=== PATIENT | female | born 1985 | race Caucasian/White ===

== ENCOUNTER 2017-05-31 09:39 | Inpatient (IN) | payer BC ==
[2017-05-31] MEDS ORDERED: LR 500 ML IV ONE ×2 (10:07→10:23)
[2017-05-31] MEDS ORDERED: ceFAZolin 2 GM/DEXTROSE 100 ML IV ONE (10:07)
[2017-05-31] MEDS ORDERED: LIDOCAINE 1% 300 MG/30 ML SDV ONE (10:15)
[2017-05-31] MEDS ORDERED: OXYTOCIN 10 UNIT/ML VIAL ONE (10:16)
[2017-05-31] MEDS ORDERED: AMMONIA AROMATIC 1 EACH AMP IH ONE (10:16)
[2017-05-31] MEDS ORDERED: TERBUTALINE SULFATE 1 MG/ML VIAL ONE (10:16)
[2017-05-31] MEDS ORDERED: MISOPROSTOL 200 MCG TAB ONE (10:16)
[2017-05-31] MEDS ORDERED: LR 1,000 ML IV SCH ×2 (10:30)
[2017-05-31 10:40] LABS: % IMMATURE GRANULYOCYTES 0.8 % (0.0-1.1); ABSOLUTE IMMATURE GRANULOCYTES 0.11 10^3/uL (0.00-0.10); ADD DIFF? NO; ADD MORPH? NO; ADD SCAN? NO; ATYPICAL LYMPHOCYTE FLAG 0 (0-99); FRAGMENT RBC FLAG 0 (0-99); HEMATOCRIT 39.6 % (38.0-47.0); HEMOGLOBIN 13.6 g/dL (12.6-16.3); LEFT SHIFT FLG 0 (0-99); LIPEMIA HEMOLYSIS FLAG 90 (0-99); MEAN CELL HEMOGLOBIN 32.8 pg (27.9-34.1); MEAN CELL HEMOGLOBIN CONCENTR. 34.3 g/dL (32.4-36.7); MEAN CELL VOLUME 95.4 fL (81.5-99.8); MEAN PLATELET VOLUME 11.1 fL (8.7-11.7); PLATELET CLUMPS FLAG 10 (0-99); PLATELET COUNT 168 10^3/uL (150-400); RED BLOOD CELL COUNT 4.15 10^6/uL (4.18-5.33); RED CELL DISTRIBUTION WIDTH 12.8 % (11.5-15.2)
[2017-05-31] MEDS ORDERED: CITRIC ACID/SODIUM CITRATE 30 ML UDCUP PO ONE (10:55)
--- NOTE | 2017-05-31 10:58 | PDANEPAE ---
ANE History of Present Illness breech presentation ANE Past Medical History - Cardiovascular History Hx Hypertension: No Hx Arrhythmias: No Hx Chest Pain: No Hx Coronary Artery / Peripheral Vascular Disease: No Hx CHF / Valvular Disease: No Hx Palpitations: No - Pulmonary History Hx COPD: No Hx Asthma/Reactive Airway Disease: No Hx Recent Upper Respiratory Infection: No Hx Oxygen in Use at Home: No Hx Sleep Apnea: No - Endocrine History Hx Diabetes: No Hypothyroid: No Hyperthyroid: No Obesity: no - Surgical History Prior Surgeries: detached retina/scleral buckling ANE Review of Systems Review of Systems: - Exercise capacity METS (RN): 4 METS ANE Patient History - Allergies Allergies/Adverse Reactions: No Known Allergies Allergy (Unverified 05/31/17 10:05) - Home Medications Home Medications: 05/31/17 [Last Taken 05/30/17 19:00] - Anes Hx Anes Hx: no prior problems - Smoking Hx Smoking Status: Never smoked ANE Labs/Vital Signs - Labs Result Diagrams: 05/31/17 10:10 - Vital Signs Height: 165.1 cm Weight: 78.471 kg ANE Physical Exam - Airway Neck exam: FROM Mallampati Score: Class 2 Mouth exam: normal dental/mouth exam - Pulmonary Pulmonary: no respiratory distress, no rales or rhonchi, clear to auscultation - Cardiovascular Cardiovascular: regular rate and rhythym, no murmur, rub, or gallop - ASA Status ASA Status: II, E ANE Anesthesia Plan Anesthesia Plan: spinal Total IV Anesthesia: No
[2017-05-31] MEDS ORDERED: fentaNYL 100 MCG/2 ML INJ ONE (11:06)
--- NOTE | 2017-05-31 11:21 | GHP ---
[f rep st] HISTORY AND PHYSICAL DATE OF ADMISSION: 05/31/2017 ADMITTING DIAGNOSIS: 1. Intrauterine at 40 weeks. 2. Malpresentation, breech. HISTORY OF PRESENT ILLNESS: Patient is a 32-year-old, 1, para 0, at 40 weeks with an estimated due date 05/31/2017 by LMP 08/24/2016 and confirmed by first-trimester ultrasound. The patient presented for routine visit today and on ultrasound was found to be breech, and she was sent down to Labor and Delivery. The patient denies any leakage of fluid or vaginal bleeding. States there is good movement. Does admit to contractions every 8 minutes , getting more painful and was found to be 2 cm and 100 % effaced in the office on exam. The patient has good care at [facility] and presented in her 1st trimester at 8 weeks. She was diagnosed in her 1st trimester by ultrasound with a placenta previa. This did resolve in second- trimester at 20 weeks. The patient does have a history of scleral buckle, a detached retina with 3 surgeries. She is taking baby aspirin prophylactically for preeclampsia because she has a twin sister, who had elevated liver enzymes and HELLP in her 3rd trimester of her . The patient did receive a Tdap during . She did develop anemia of , and is tolerating iron. GBS culture is negative. PAST OBSTETRIC HISTORY: Patient is primigravida. GYNECOLOGIC HISTORY: Age of menarche is 12. Cycles are every 28 days for 5 days. LMP 08/24/2016. She had a positive urine test mid-September. Patient has a history of abnormal Pap smears and had cryotherapy of cervix in 2005 with negative Pap smears since. 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 Denies any genital lesions. She denies exposure to any other STDs. She has a history of OCPs, NuvaRing use in the past and had Mirena in place for 5 years with removal in April 2016. PAST MEDICAL HISTORY: Unremarkable. PAST SURGICAL HISTORY: She had a detached retina and needed 3 surgeries in 2014 in right eye, and she did have anesthetic complications, requiring increased anesthesia. MEDICATIONS: Include [id number] vitamin and iron. ALLERGIES: No known drug allergies. SOCIAL HISTORY: She is , lives with her . 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 Denies alcohol, tobacco or illicit drug use. FAMILY HISTORY: Maternal grandmother with stomach cancer, great grandmother had melanoma and great aunt with colon cancer. REVIEW OF SYSTEMS: A 10-point review of systems is negative. Pertinent positives noted in HPI. LABS: Blood type A positive, antibody negative. RPR nonreactive. Rubella immune. Hepatitis B surface antigen negative. HIV negative. Trio screen negative. Pap test normal in October 2016, as well as gonorrhea and chlamydia cultures. AFP negative. Verifi negative. H and H 12.6 and 36.5. 1- hour Glucola 134. GBS culture is negative. PHYSICAL EXAMINATION: VITAL SIGNS: On admission, vital signs are stable. GENERAL: Well-nourished, well-developed female. Alert and oriented x3. No apparent distress. CARDIOVASCULAR: Regular rate and rhythm. LUNGS: Clear to auscultation. ABDOMEN: Gravid, soft, nontender, nondistended. EXTREMITIES: Normal to inspection, without calf tenderness or edema. PELVIC: Vaginal exam is deferred. On the monitor, there is a Category 1 strip, with a heart baseline 140 bpm , positive accelerations, no decelerations. Moderate variability. On toco, there are contractions every 8-10 minutes. ASSESSMENT: The patient is a 32-year-old, 1, para 0, at 40 weeks with malpresentation, breech. PLAN: 1. Admit to Labor and Delivery. 2. Proceed with a primary C section. 3. Surgical consents were obtained. Discussed risks, benefits and alternatives with the patient; including, but not limited to, bleeding, infection, damage to surrounding organs. The patient understands all risks at this time and wants to proceed with surgery. 4. Antibiotics global expansion sales director to OR. 5. SCDs for DVT prophylaxis. /[id number]/MODL MTDD
[2017-05-31] MEDS ORDERED: OXYTOCIN 100 UNITS/10 ML VIAL ONE (12:18)
[2017-05-31] MEDS ORDERED: ONDANSETRON 4 MG/2 ML VIAL IVP PRN (13:09)
[2017-05-31] MEDS ORDERED: NALOXONE HCL 0.4 MG/ML INJ IVP PRN (13:09)
[2017-05-31] MEDS ORDERED: METOCLOPRAMIDE 10 MG/2 ML VIAL IVP PRN (13:09)
--- NOTE | 2017-05-31 13:12 | POSTANESTH ---
Post Anesthetic Evaluation Cardiovascular Status: Normal, Stable Respiratory Status: Normal, Stable Level of Consciousness/Mental Status: Can Participate in Eval Pain Control: Adequate, Prn Tx Ordered Nausea/Vomiting Control: Adequate, Prn Tx Ordered Complications Possibly Related to Anesthesia: None Noted
[2017-05-31] MEDS ORDERED: PROMETHAZINE HCL 25 MG/ML INJ IVP PRN (13:50)
[2017-05-31] MEDS ORDERED: DOCUSATE SODIUM 100 MG CAP PO PRN (13:50)
[2017-05-31] MEDS ORDERED: BISACODYL 10 MG SUPP PR PRN (13:50)
[2017-05-31] MEDS ORDERED: POLYETHYLENE GLYCOL 3350 17 GM PKT PO PRN (13:50)
[2017-05-31] MEDS ORDERED: MAGNESIUM HYDROXIDE 30 ML UDCUP PO PRN (13:50)
[2017-05-31] MEDS ORDERED: SIMETHICONE 80 MG TAB CHEW PO PRN (13:50)
[2017-05-31] MEDS ORDERED: LACTULOSE 20 GM/30 ML UDCUP PO PRN (13:50)
--- NOTE | 2017-05-31 13:57 | OBDEL ---
Info Type: Primary Presentation at Delivery: Breech (double footling) L&D Analgesia/Anesthesia Type: Spinal GBS+: No Intrapartum Medications: Discontinued Medications Generic Name Dose Route Start Last Admin Trade Name Maria Elena PRN Reason Stop Dose Admin Citric Acid/Sodium Citrate 30 ml 05/31/17 10:55 05/31/17 11:40 Bicitra PO 05/31/17 10:56 30 ml ONCE ONE Administration Cefazolin Sodium/Dextrose 100 mls @ 200 mls/hr 05/31/17 10:07 05/31/17 11:42 Ancef 2 Gm (Premix) IV 05/31/17 10:36 100 mls ONCALL ONE Administration Protocol - Infant Care Provider Fashion Consultant Sales/MAINTENANCE TECHNICIAN: Marguerite Aranda - [facility] Course Intrapartum: Pt noted to be breech in office today at routine visit by bedside u/s. 05/31/17 13:55 Indications for Delivery: Elective (Malpresentation-breech) Vaginal Delivery - Labor and Delivery Onset of Contractions Date: 05/30/17 Onset of Contractions Time: 23:00 Rupture of Membranes Date: 05/31/17 Rupture of Membranes Time: 12:16 Placenta Delivery Date: 05/31/17 Placenta Delivery Time: 12:18 Total Hours of Labor: 13 Operative Report - Delivery Pre-op Diagnoses: IUP @ 40 weeks with malpresentation-breech Post-op Diagnoses: IUP @ 40 weeks with malpresentation-breech. Double footling breech. Nuchal cord History of Prior Section: No Number of Prior Sections: 0 Nulliparous Prior to Delivery: Yes Indications for Current Section: Breech (double footling) Procedure: Low Transverse Surgeon: Sheron Montes Teller Vault: Jose Carlos Brady Anesthesiologist: Joshua Ruth Complications: None Findings: A viable female in double footling presentation with 8 and 9 Apgars. Nuchal cord x 1 -slipped. Delayed cord clamping done. Cord blood sent. Placenta delivered spontaneously intact with a 3-vc. Grossly normal appearing uterus, tubes and ovaries. IV Fluid (ml): 1,500 EBL: 800cc Data Wan Delivery Date: 05/31/17 Delivery Time: 12:17 SANTO: 05/31/17 Gestational Age: 40 week(s) and 0 day(s) Sex of : Female Score (1 Min): 8 Score (5 Min): 9 ("Lizette") ICD10 Worksheet Patient Problems: Problems Problem Status Onset Breech presentation, double footling Acute Status post primary low transverse section Acute - ICD10 Problem Qualifiers (1) Breech presentation, double footling (2) Status post primary low transverse section
[2017-05-31] MEDS: KETOROLAC 30 MG/1 ML SDV IVP PRN ×2 (14:28→20:41)
--- NOTE | 2017-05-31 16:48 | GOP ---
[f rep st] OPERATIVE REPORT DATE OF OPERATION: 05/31/2017 SURGEON: Sheron Montes DO FIRE WATCHER: Jose Carlos Brady MD ANESTHESIA: Spinal. ANESTHESIOLOGIST: Michael Ruth DO PREOPERATIVE DIAGNOSIS: 1. Intrauterine at 40 weeks. 2. Malpresentation, breech. POSTOPERATIVE DIAGNOSIS: 1. Intrauterine at 40 weeks. 2. Malpresentation, breech. 3. Double footling. 4. Nuchal cord. PROCEDURE PERFORMED: Primary low transverse section. FINDINGS: Viable female with 8 and 9 's in double footling breech presentation. Cord cla mping was delayed. Cord blood sent. Placenta delivered intact with 3-vessel cord and grossly normal-a ppearing uterus, tubes, and ovaries bilaterally. SPECIMENS: None. ESTIMATED BLOOD LOSS: 800 cc. INDICATIONS: Patient is a 32-year-old 1 para 0 at 40 weeks, who [facility] and was found to be breech on ultrasound. She was sent down to Labor and Delivery. Pat ient denies any leakage of fluid or vaginal bleeding. States there is good movement. Does admit to contractions every 8 minutes since last night, getting more painful. In the office, was examined and found to be 2 cm and 100% effaced. We discussed, with her being in early labor and baby being blanca ech, to proceed with a . We did discuss risks, benefits, and alternatives of the procedure i ncluding, but not limited to, bleeding, infection, and damage to surrounding organs. Patient understa nds all risks at this time and does want to proceed with the surgery. DESCRIPTION OF PROCEDURE: Patient was taken to the operating room where spinal anesthesia was admini stered without difficulty. The patient was prepped and draped in the usual sterile fashion and placed in dorsal supine position with a leftward tilt. There was adequate anesthesia noted. A Pfannenstiel skin incision was then made with the scalpel and carried through the underlying layer of fascia using the Bovie. Fascia was then incised in the midline and extended laterally using the Farzaneh mendosa scissors. Tari clamps were then used to elevate the superior aspect of the fascial incision, and underlying rectus muscles were dissected off using the Eduardo scissors, as well as bluntly. Attention was then turned to the inferior aspect of the fascial incision, which in a similar fashion was graspe d with Tari clamps and elevated, and underlying rectus muscles dissected off bluntly. Rectus muscle s then dissected in the midline. Peritoneum was identified, entered bluntly. The incision was then ex tended superiorly and inferiorly with good visualization of the bladder. Bladder blade was then inser dave. Vesicouterine peritoneum was identified, entered sharply with Metzenbaum scissors. Incision was then extended laterally, and a bladder flap was created digitally. Uterine incision was then made in a low transverse fashion with scalpel and extended anteriorly and posteriorly with manual traction. R upture of membranes occurred, and there was noted to be meconium and a double footling presentation. Infant was delivered without difficulty. Cord clamping was delayed for 60 seconds. It was then clampe d x2 and cut. handed off to awaiting nursery nurse. A viable female with 8 and 9 ' s. Cord blood was obtained. Placenta was then delivered intact with 3-vessel cord. Uterus was then e xteriorized and cleared of all clots, debris, and any remaining placental tissue. The uterine incisio n was then repaired in 2 layers using 0 Vicryl stitch. Hemostasis was visualized. The uterus was then placed back inside the abdomen. All gutters were cleared of any blood and blood clots. The incision was reexamined and noted to be hemostatic. Rectus muscles were then reapproximated midline using 3-0 Vicryl. The fascia was then closed with 0 Vicryl sutures. Hemostasis was noted. Skin was then closed with 4-0 Vicryl on a Willy needle. Sponge, lap, and instrument counts correct x2. Patient tolerated t he procedure well. No complications. The patient was stable at the completion of procedure and was transferred to the recovery room in sta ble condition. FLUIDS: 1500 cc LR. URINE OUTPUT: 300 cc of clear urine at the end the procedure. /[id number]/MODL
[2017-05-31] MEDS: SENNOSIDES/DOCUSATE SODIUM TAB PO SCH (20:41)
[2017-06-01] MEDS: KETOROLAC 30 MG/1 ML SDV IVP PRN ×2 (03:18→09:03)
[2017-06-01] MEDS: SENNOSIDES/DOCUSATE SODIUM TAB PO SCH ×2 (09:03→20:21)
--- NOTE | 2017-06-01 11:06 | OBPP ---
Progress Note Assessment/Plan: Assessment: 1) s/p PCS secondary to malpresentation-double footling breech POD # 1 - pt is stable 2) Anemia - pt is asymptomatic Plan: Continue routine pp care Encourage ambulation Pt may shower after dressing is removed at noon Cont to monitor urine output Will start iron BID Plan for d/c home in 24-48 hrs 06/01/17 11:02 Subjective/ Course: Pt seen and examined. Doing well, up ambulating in the halls. No complaints. Pain is well controlled with Toradol. Pt is OOB, sarah regular diet, woo just removed, passing flatus. Denies any f/c/n/v/CP or SOB. Denies any dizziness when up OOB. Minimal lochia. BF well so far. 06/01/17 11:04 Objective: 06/01/17 03:25 Patient ABO/Rh A POSITIVE 05/31/17 10:10 Temp Pulse Resp BP Pulse Ox 36.7 C 69 16 104/59 L 99 06/01/17 07:45 06/01/17 07:45 06/01/17 07:45 06/01/17 07:45 06/01/17 07:45 Uterine Position/Fundal Height: Umbilicus -2 Uterine Tone: Firm Physical Exam - Physical Exam Respiratory: lungs clear, normal breath sounds Cardiac/Chest: regular rate, rhythm Abdomen: normal bowel sounds, non-tender, soft, flatus (+), incision (C/D/I with dressing), dressing (C/D/I) Extremities: non-tender, normal inspection Skin: normal color, warm/dry Neuro/Psych: alert, normal mood/affect, oriented x 3
--- NOTE | 2017-06-01 11:22 | SOAPPROG ---
SOAP Progress Note Assessment/Plan: Assessment:POD #1 s/p C/S performed under SAB. Intrathecal morphine administered for extended post op pain control. Pt doing very well. Plan:continue current medical mgmt 06/01/17 11:20 Objective: Vital Signs Temp Pulse Resp BP Pulse Ox 36.7 C 69 16 104/59 L 99 06/01/17 07:45 06/01/17 07:45 06/01/17 07:45 06/01/17 07:45 06/01/17 07:45 Laboratory Results 06/01/17 03:25 05/31/17 06/01/17 06/02/17 05:59 05:59 05:59 Intake Total 3250 Output Total 1800 600 Balance 1450 -600 Physical Exam - Physical Exam General Appearance: WD/WN, alert, no apparent distress Extremities: normal range of motion Neuro/Psych: no motor/sensory deficits, alert, normal mood/affect, oriented x 3 ICD10 Worksheet Patient Problems: Problems Problem Status Onset Breech presentation, double footling Acute Status post primary low transverse section Acute
[2017-06-01] MEDS: IRON POLYSAC/IRON HEME 28 MG TAB PO SCH ×2 (12:35→20:21)
[2017-06-01] MEDS: HYDROCODONE/APAP 5/325 TAB PO PRN ×2 (16:34→20:20)
[2017-06-01] MEDS: IBUPROFEN 600 MG TAB PO PRN ×2 (16:35→23:35)
[2017-06-02] MEDS: HYDROCODONE/APAP 5/325 TAB PO PRN ×5 (00:09→20:56)
[2017-06-02] MEDS: IBUPROFEN 600 MG TAB PO PRN ×3 (06:15→21:53)
[2017-06-02] MEDS: SENNOSIDES/DOCUSATE SODIUM TAB PO SCH ×2 (08:41→20:57)
[2017-06-02] MEDS: IRON POLYSAC/IRON HEME 28 MG TAB PO SCH ×2 (08:41→20:57)
--- NOTE | 2017-06-02 13:21 | OBPP ---
Progress Note Assessment/Plan: Assessment: 32 yo WF POD#1 s/p 1CD for breech @ 40 weeks with suspected subcutaneous hematoma (underlying Pfannenstiel incision). Plan: 1. Postop: Routine post-operative care, advance diet and activity as tolerated, may showe today 2. Suspected Incisional Hematoma: Monitor incision site closely, repeat H&H today, kept tightly bandaged with ABD binder and ice packs. 06/02/17 13:17 Subjective/ Course: Pt seen and examined. Doing well, up ambulating in the halls. No complaints. Pain is well controlled with Toradol. Pt is OOB, sarah regular diet, woo just removed, passing flatus. Denies any f/c/n/v/CP or SOB. Denies any dizziness when up OOB. Minimal lochia. BF well so far. 06/01/17 11:04 06/02/17 13:21 Patient is ambulating, tolerating pain with PO meds, voiding on her own, denies spontaneous flatus, reports moderate lochia, and is infant without difficulty. She denies excessive incisional pain, but is aware of bruising and swelling at incision site. Objective: 06/01/17 03:25 Patient ABO/Rh A POSITIVE 05/31/17 10:10 Temp Pulse Resp BP Pulse Ox 36.3 C 80 18 116/65 96 06/02/17 08:00 06/02/17 08:00 06/02/17 08:00 06/02/17 08:00 06/02/17 08:00 Gen: AAO x 3 HENT: atraumatic, normocephalic Heart: RRR, no m/r/g Lungs: CTAB, no wheezes or rhonchi Abdomen: soft, appropriately tender, bowel sounds present, incision is clean, dry and intact with noted underlying (stable-appearing) hematoma Extremities: no excessive edema in BLE Hct (06/02/17): Pending Uterine Position/Fundal Height: Umbilicus -2 Uterine Tone: Firm
[2017-06-02 16:13] LABS: HEMATOCRIT 24.4 % (38.0-47.0); HEMOGLOBIN 8.2 g/dL (12.6-16.3)
[2017-06-02 20:11] VITALS: RESP 16; O2SAT 97
[2017-06-03] MEDS: IBUPROFEN 600 MG TAB PO PRN ×2 (03:42→09:15)
--- NOTE | 2017-06-03 08:43 | OBPP ---
Progress Note Assessment/Plan: Assessment: 1) s/p PCS secondary to malpresentation-double footling breech POD # 3 - pt is stable 2) Anemia - pt is asymptomatic 3) Wound hematoma - stable Plan: Continue routine pp care Pt wants to go home today Instructions reviewed with pt Rx given for [facility] and Motrin Cont PNV and iron, colace Pelvic rest RTC in 3-5 days for incision check 06/03/17 08:40 Subjective/ Course: Pt seen and examined. Doing well, up ambulating in the halls. No complaints. Pain is well controlled with Toradol. Pt is OOB, sarah regular diet, woo just removed, passing flatus. Denies any f/c/n/v/CP or SOB. Denies any dizziness when up OOB. Minimal lochia. BF well so far. 06/01/17 11:04 06/02/17 13:21 Patient is ambulating, tolerating pain with PO meds, voiding on her own, denies spontaneous flatus, reports moderate lochia, and is infant without difficulty. She denies excessive incisional pain, but is aware of bruising and swelling at incision site. 06/03/17 08:42 Pt seen and examined. Doing well with no complaints. Pain is well controlled. Pt is OOB, sarah regular diet, voiding and passing flatus. NO BM yet. Mod lochia. Denies any f/c/n/v/CP or SOB. Some incisional tenderness, but no drainage. BF without difficulty. She wants to go home today. Objective: 06/02/17 16:00 Patient ABO/Rh A POSITIVE 05/31/17 10:10 Temp Pulse Resp BP Pulse Ox 36.5 C 85 16 116/65 97 06/02/17 20:10 06/02/17 20:10 06/02/17 20:10 06/02/17 08:00 06/02/17 20:10 Uterine Position/Fundal Height: Umbilicus -2 Uterine Tone: Firm Physical Exam - Physical Exam Respiratory: lungs clear, normal breath sounds Cardiac/Chest: regular rate, rhythm Abdomen: normal bowel sounds, non-tender, soft, flatus (+), incision (C/D/I; + ecchymosis; +induration noted superiorly; no erythema; +edema; c/w hematoma) Extremities: non-tender, normal inspection Skin: normal color, warm/dry Neuro/Psych: alert, normal mood/affect, oriented x 3
--- NOTE | 2017-06-03 08:47 | OBGCSDC ---
General Delivery Information - General Info : 1 Para: 1 Abortions: 0 Type: Primary L&D Analgesia/Anesthesia Type: Spinal Admission Date: 05/31/17 Labs: Patient ABO/Rh A POSITIVE 05/31/17 10:10 Hct 24.4 % (38.0-47.0) L 06/02/17 16:00 - Hospital Course Antepartum: 06/03/17 08:45 Malpresentation - breech on u/s at routine visit at 40 weeks Intrapartum: Pt noted to be breech in office today at routine visit by bedside u/s. 05/31/17 13:55 : Pt seen and examined. Doing well, up ambulating in the halls. No complaints. Pain is well controlled with Toradol. Pt is OOB, sarah regular diet, woo just removed, passing flatus. Denies any f/c/n/v/CP or SOB. Denies any dizziness when up OOB. Minimal lochia. BF well so far. 06/01/17 11:04 06/02/17 13:21 Patient is ambulating, tolerating pain with PO meds, voiding on her own, denies spontaneous flatus, reports moderate lochia, and is infant without difficulty. She denies excessive incisional pain, but is aware of bruising and swelling at incision site. 06/03/17 08:42 Pt seen and examined. Doing well with no complaints. Pain is well controlled. Pt is OOB, sarah regular diet, voiding and passing flatus. NO BM yet. Mod lochia. Denies any f/c/n/v/CP or SOB. Some incisional tenderness, but no drainage. BF without difficulty. She wants to go home today. - Delivery Providers Surgeon: Sheron Montes Tube Drawing Supervisor: Jose Carlos Brady Anesthesiologist: Joshua Ruth - Delivery Number of Prior Sections: 0 Indications for Current Section: Breech (double footling) Surgical Procedures: Low Transverse Intra-op Complications: None EBL: 800cc Data Wan Delivery Date: 05/31/17 Delivery Time: 12:17 SANTO: 05/31/17 Gestational Age: 40 week(s) and 3 day(s) Sex of Infant: Female Weight (gm): 3180 g Score (1 Min): 8 Score (5 Min): 9 Discharge Information - Discharge Information Prescriptions: Hydrocodone/APAP 5/325 [[place] 5/325 (*)] 1 - 2 tab PO Q4HRS PRN #30 tab PRN Reason: Pain, Moderate Ibuprofen [Motrin (*)] 600 mg PO Q6HRS PRN #30 tab PRN Reason: Inflammation Condition: Good Instruction/Follow Up: Two Weeks (3-5 days for incision check, check on hematoma ), Four Weeks, Six Weeks
[2017-06-03] MEDS: SENNOSIDES/DOCUSATE SODIUM TAB PO SCH (09:16)
[2017-06-03] MEDS: IRON POLYSAC/IRON HEME 28 MG TAB PO SCH (09:16)
[2017-06-03 09:48] VITALS: BP 118/73; PULSE 84; TEMP 98
== END 2017-06-03 12:55 | disposition home or self-care (01) | DRG 765 ==
LOC: FLD 09:39 → FOB 17:51
PROVIDERS: ADMIT Obstetrics & Gynecology Gynecology; ATTEND Obstetrics & Gynecology
PROC: 10D00Z1 Extraction of Products of Conception, Low, Open Approach (ICD-10-PCS; principal; 2017-05-31)
DX: O32.8XX0 Maternal care for other malpresentation of fetus, not applicable or unspecified (principal); L76.32 Postprocedural hematoma of skin and subcutaneous tissue following other procedure; O99.73 Diseases of the skin and subcutaneous tissue complicating the puerperium; O69.9XX0 Labor and delivery complicated by cord complication, unspecified, not applicable or unspecified; O99.013 Anemia complicating pregnancy, third trimester; D64.9 Anemia, unspecified; Z3A.40 40 weeks gestation of pregnancy; Z86.69 Personal history of other diseases of the nervous system and sense organs; Z37.0 Single live birth
CPT/HCPCS: J0690; J1885; J2550; J2590; J3010; J3105

== ENCOUNTER 2017-06-12 10:31 | Observation (INO) | payer BC | END 2017-06-12 11:20 | disposition home or self-care (01) | LOC: FLD 10:31 | PROVIDERS: ADMIT Obstetrics & Gynecology; ATTEND Obstetrics & Gynecology | DX: O90.2 Hematoma of obstetric wound (principal) ==

== ENCOUNTER → 2017-06-18 | Outpatient (CLI) | payer BC | LOC: FLACT 13:09 | PROVIDERS: ATTEND Obstetrics & Gynecology | DX: Z39.1 Encounter for care and examination of lactating mother (principal) | CPT/HCPCS: G0463 ==